=== PATIENT | male | born 1990 | race Caucasian/White ===

== ENCOUNTER 2019-02-18 21:34 | Emergency (ER) | payer OTHER ==
[~2019-02-18] VITALS: Ht 175.3 cm; Wt 75.0 kg
[~2019-02-18 21:34] MED LIST: NO HOME MEDS
[2019-02-18] MEDS ORDERED: FLUORESCEIN OPHTH 1 MG STRIP As Ordered ONE (23:11)
[2019-02-18] MEDS ORDERED: FLUORESCEIN OPHTH 1 MG STRIP XX ONE (23:15)
[2019-02-18] MEDS ORDERED: GENTAMICIN 0.3% OPHTH SOL 5 ML BTL OD ONE (23:30)
[2019-02-18 23:40] VITALS: BP 134/67
== END 2019-02-18 23:45 | disposition home or self-care (01) ==
LOC: M ED 21:34
DX: S05.01XA Injury of conjunctiva and corneal abrasion without foreign body, right eye, initial encounter (principal); W51.XXXA Accidental striking against or bumped into by another person, initial encounter; Y92.098 Other place in other non-institutional residence as the place of occurrence of the external cause

== ENCOUNTER 2021-01-18 15:54 | Emergency (ER) | payer OTHER ==
[~2021-01-18] VITALS: Ht 175.3 cm; Wt 77.3 kg
--- NOTE | 2021-01-18 16:49 | REP ---
INDICATION: L foot injury. COMPARISON: None. TECHNIQUE: Four views of the left foot. FINDINGS: Four views of the left foot demonstrate normal bones, joints, and soft tissues. No fracture or subluxation is seen. No opaque foreign body noted. IMPRESSION: Negative left foot series. <Electronically signed by Juice Patel > 01/18/21 [id number]
[2021-01-18 17:41] VITALS: BP 141/86
== END 2021-01-18 17:41 | disposition home or self-care (01) ==
LOC: M ED 15:54
DX: S92.355A Nondisplaced fracture of fifth metatarsal bone, left foot, initial encounter for closed fracture (principal); S90.415A Abrasion, left lesser toe(s), initial encounter; W22.8XXA Striking against or struck by other objects, initial encounter; Y92.89 Other specified places as the place of occurrence of the external cause; Y99.0 Civilian activity done for income or pay